=== PATIENT | female | born 1930 | race African-American/Black ===

== ENCOUNTER 2016-07-21 18:00 | Emergency (ER) | payer MEDICARE, MEDICAID ==
[~2016-07-21] VITALS: Ht 165.1 cm; Wt 91.6 kg
[~2016-07-21 18:00] MED LIST: CARV3.1240; CLON0.1T; ENAL5TAB92; ESOM40CA39; FURO40TA; HYDR-2549; LISI2.5T47; LORA-653; POTA8TAB2; PROMETHAZINE/CODEINE; SILV-21; SIMV-8
[2016-07-22] MEDS ORDERED: ONDANSETRON HCL 4 MG/2 ML VIAL IM ONE (05:45)
[2016-07-22] MEDS ORDERED: MORPHINE SULFATE 4 MG/ML SYRG IM ONE (05:45)
[2016-07-22 06:30] VITALS: BP 136/77
== END 2016-07-22 08:12 | disposition home or self-care (01) ==
LOC: ER 18:05
DX: M54.41 Lumbago with sciatica, right side (principal); M19.90 Unspecified osteoarthritis, unspecified site; I11.0 Hypertensive heart disease with heart failure; I50.9 Heart failure, unspecified; E78.5 Hyperlipidemia, unspecified; M10.9 Gout, unspecified; R53.1 Weakness; Z95.0 Presence of cardiac pacemaker
CPT/HCPCS: 36415; 72131; 84550; 93971; 96372; 99285; J2270; J2405

== ENCOUNTER 2017-05-03 08:38 | Inpatient (IN) | payer MEDICARE, MEDICAID ==
[~2017-05-03] VITALS: Ht 157.5 cm; Wt 82.2 kg
[2017-05-03] MEDS ORDERED: cloNIDine HCL 0.1 MG TAB ONE (08:47)
[2017-05-03] MEDS ORDERED: cloNIDine HCL 0.1 MG TAB PO ONE ×2 (09:00→13:00)
[2017-05-03 09:48] LABS: Basophils # (auto) 0 uL; Basophils % (auto) 0.5 % (0.0-2.0); Eosinophils # (auto) 0.1 uL; Eosinophils % (auto) 1.3 % (0.0-7.0); Hematocrit 41.5 % (36.0-46.0); Hemoglobin 13.6 g/dL (12.2-16.2); Lymphocytes # (auto) 1.3 uL; Lymphocytes % (auto) 23.5 % (10.0-50.0); Mean Corpuscular Hemoglobin 29.7 pg (28.0-32.0); Mean Corpuscular Hgb Conc. 32.8 g/dL (32.0-36.0); Mean Corpuscular Volume 90.4 fL (80.0-100.0); Mean Platelet Volume 9.8 fL (6.9-10.8); Monocytes # (auto) 0.3 uL; Monocytes % (auto) 5.7 % (0.0-12.0); Neutrophils # (auto) 3.7 uL; Nucleated Red Blood Cells % 0.1 %; Platelet Count (auto) 208 10^3/uL (140-450); Red Cell Distribution Width 14.5 % (11.8-14.3); White Blood Cell 5.4 10^3/uL (4.4-10.8)
[2017-05-03 10:32] LABS: Albumin 3.6 g/dL (3.4-5.0); BUN/Creatinine Ratio 11.5; Bilirubin, Total 0.5 mg/dL (0.2-1.0); Calcium 8.8 mg/dL (8.5-10.1); Magnesium 2.2 mg/dL (1.6-2.6); Potassium 3.1 mmol/L (3.5-5.1); Total Protein 7.5 g/dL (6.4-8.2)
[2017-05-03] MEDS ORDERED: POTASSIUM CHL 10% (20 MEQ/15ML) 15ml ORAL SOLN PO ONE (12:15)
[2017-05-03] MEDS ORDERED: ASPirin 325 MG TAB PO ONE (12:15)
[2017-05-03] MEDS ORDERED: ENALAPRILAT 1.25 MG/ML-1ML VIAL IV PRN (13:00)
[2017-05-03] MEDS ORDERED: ENALAPRILAT 1.25 MG/ML-1ML VIAL IV ONE (13:00)
[2017-05-03] MEDS ORDERED: LABETALOL HCL 5 MG/ML 4ML SYRINGE IV PRN ×2 (13:00)
[2017-05-03] MEDS ORDERED: LABETALOL HCL 5 MG/ML ML 20ML VIAL IV PRN (13:00)
[2017-05-03] MEDS ORDERED: PANTOPRAZOLE 40 MG TAB PO ONE (13:15)
[2017-05-03] MEDS ORDERED: CARVEDILOL 3.125 MG TAB PO ONE (13:15)
[2017-05-03] MEDS ORDERED: LISINOPRIL 10 MG TAB PO ONE (13:15)
[2017-05-03] MEDS ORDERED: POTASSIUM CHLORIDE 8 MEQ TAB PO ONE (13:15)
[2017-05-03] MEDS ORDERED: FUROSEMIDE 40 MG TAB PO ONE (13:15)
[2017-05-03] MEDS ORDERED: NITROGLYCERIN 0.4 MG SL TAB SL PRN (13:30)
[2017-05-03] MEDS ORDERED: MORPHINE SULFATE 10 MG/ML INJ 1ML SDV IV PRN (13:30)
[2017-05-03] MEDS: CARVEDILOL 12.5 MG TAB PO SCH ×2 (14:08→15:28)
[2017-05-03] MEDS: LOSARTAN POTASSIUM 50 MG TAB PO SCH (14:09)
[2017-05-03] MEDS: cloNIDine HCL 0.1 MG TAB PO SCH ×2 (17:02→22:00)
[2017-05-03] MEDS ORDERED: ALPR0.5T7 PO (21:17)
[2017-05-03] MEDS ORDERED: HYDR-4683 PO (21:17)
[2017-05-03] MEDS ORDERED: DOCU100T15 PO (21:17)
[2017-05-03] MEDS ORDERED: IBUP600T27 PO (21:17)
[2017-05-03] MEDS ORDERED: LOSA50TA6 PO (21:17)
[2017-05-03 21:53] VITALS: BP 133/59
[2017-05-03 22:00] VITALS: BP 133/59
[2017-05-03] MEDS ORDERED: CARVEDILOL 3.125 MG TAB PO SCH (22:00)
[2017-05-03] MEDS ORDERED: ALPRAZolam 0.5 MG TAB PO PRN (22:15)
[2017-05-03] MEDS: ATORVASTATIN 20 MG TAB PO SCH (22:16)
[2017-05-04 01:50] LABS: Urine Bilirubin Negative (Negative); Urine Blood Negative /uL (Negative); Urine Color Yellow (Yellow); Urine Glucose Normal (Normal); Urine Ketone Negative (Negative); Urine Mucus FEW (None Seen); Urine Nitrite Negative (Negative); Urine RBC 1 /hpf (0 - 4); Urine Squamous Epithelial Cell FEW /hpf (<5); Urine Urobilinogen Normal (Negative)
[2017-05-04 05:00] VITALS: BP 140/80
[2017-05-04] MEDS: HYDROcodone-ACET 5/325MG TAB PO PRN ×2 (05:51→18:56)
[2017-05-04] MEDS: cloNIDine HCL 0.1 MG TAB PO SCH ×3 (05:51→22:11)
[2017-05-04 09:04] VITALS: BP 134/84
[2017-05-04] MEDS: LOSARTAN POTASSIUM 50 MG TAB PO SCH (09:16)
[2017-05-04] MEDS: POTASSIUM CHLORIDE 8 MEQ TAB PO SCH (09:17)
[2017-05-04] MEDS: PANTOPRAZOLE 40 MG TAB PO SCH (09:17)
[2017-05-04] MEDS: FUROSEMIDE 40 MG TAB PO SCH (09:17)
[2017-05-04] MEDS: CARVEDILOL 12.5 MG TAB PO SCH ×2 (09:18→22:10)
[2017-05-04] MEDS ORDERED: LISINOPRIL 10 MG TAB PO SCH (10:00)
[2017-05-04 12:30] VITALS: BP 133/69
[2017-05-04 16:33] VITALS: BP 155/75
[2017-05-04 18:12] LABS: BUN/Creatinine Ratio 11.4; Calcium 8.5 mg/dL (8.5-10.1)
[2017-05-04] MEDS ORDERED: ALPRAZolam 0.5 MG TAB PO ONE (22:00)
[2017-05-04] MEDS: ATORVASTATIN 20 MG TAB PO SCH (22:10)
[2017-05-05 05:00] VITALS: BP 128/75
[2017-05-05] MEDS: cloNIDine HCL 0.1 MG TAB PO SCH ×2 (06:24→18:20)
[2017-05-05] MEDS: HYDROcodone-ACET 5/325MG TAB PO PRN ×3 (07:15→15:30)
[2017-05-05 09:28] VITALS: BP 139/74
[2017-05-05] MEDS: LOSARTAN POTASSIUM 50 MG TAB PO SCH ×2 (10:00→12:00)
[2017-05-05] MEDS: CARVEDILOL 12.5 MG TAB PO SCH ×2 (10:00→12:00)
[2017-05-05] MEDS: FUROSEMIDE 40 MG TAB PO SCH ×2 (10:00→12:00)
[2017-05-05] MEDS: POTASSIUM CHLORIDE 8 MEQ TAB PO SCH ×2 (10:00→12:00)
[2017-05-05] MEDS: PANTOPRAZOLE 40 MG TAB PO SCH (10:03)
[2017-05-05] MEDS ORDERED: ALPRAZolam 0.25 MG TAB PO PRN (10:15)
[2017-05-05 12:30] VITALS: BP 147/69
[2017-05-05] MEDS ORDERED: LISI10TA6 PO (13:31)
[2017-05-05] MEDS ORDERED: HYDR-4683 PO (13:32)
[2017-05-05 17:06] VITALS: BP 147/48
[2017-05-05 17:40] VITALS: BP 147/69
== END 2017-05-05 19:00 | disposition home or self-care (01) | DRG 305 ==
LOC: ER 08:38 → TELE 08:39 → EAST 20:40 → TELE-EAST 21:06
PROVIDERS: ADMIT Internal Medicine; ATTEND Internal Medicine
DX: I16.0 Hypertensive urgency (principal); I50.9 Heart failure, unspecified; M10.9 Gout, unspecified; I11.0 Hypertensive heart disease with heart failure; J45.909 Unspecified asthma, uncomplicated; M19.90 Unspecified osteoarthritis, unspecified site; E87.6 Hypokalemia; E78.5 Hyperlipidemia, unspecified; Z95.0 Presence of cardiac pacemaker; Z82.49 Family history of ischemic heart disease and other diseases of the circulatory system; Z79.899 Other long term (current) drug therapy
CPT/HCPCS: 36415; 70450; 71020; 80048; 80053; 81001; 83735; 84484; 85025; 93005; 96374